=== PATIENT | female | born 1945 | race Caucasian/White ===

== ENCOUNTER 2017-01-17 05:05 | Day surgery (SDC) | payer OTHER ==
[2017-01-16 12:51] VITALS: BMI 35.3
--- NOTE | 2017-01-17 08:46 | HP ---
[facility] - Chief Complaint Chief Complaint: right ankle fx - Past Medical History Allergies/Adverse Reactions: Allergies Allergy/AdvReac Type Severity Reaction Status Date / Time No Known Drug Allergies Allergy Verified 01/16/17 12:51 - Current Medications Current Medications: Home Medications Medication Instructions Recorded Aspirin 81 mg PO DAILY 06/27/12 Pitavastatin Calcium [Livalo] 1 mg PO DAILY 06/27/12 Atenolol [Tenormin -] 50 mg PO HS #0 06/28/12 Calcium Carbonate/Vitamin D3 1 each PO BID 10/04/13 [Calcium 600-Vit D3 200 Tablet] Docusate Sodium [Colace -] 100 mg PO DAILY 10/04/13 Isosorbide Mononitrate 30 mg PO DAILY #0 10/23/13 Irbesartan/Hydrochlorothiazide 1 each PO DAILY 01/16/17 [Avalide 150-12.5 mg Tablet] Oxycodone HCl/Acetaminophen 1 - 2 tab PO Q6H #50 tab MDD 8 01/17/17 [Percocet 5-325 mg Tablet] [facility] Physical Exam - Physical Examination General Appearance: Well Nourished, Well Developed, Alert & Oriented x3 ENT: Clear Lung: Normal air movement Heart: Regular rate & rhythm Extremities: Other (right ankle - + swelling, + ttp, decr rom, nvi xrays show displaced distal fibula fx) Neurological: Intact, Alert, Oriented [facility] Impression/Plan - Impression/Plan Impression: right distal fibula fx Operative Procedure: right distal fibula orif Date to be Performed: 01/17/17
[2017-01-17] MEDS ORDERED: ROPIVACAINE HCL 0.5% 30ML VIAL ONE (09:58)
[2017-01-17] MEDS ORDERED: MIDAZOLAM HCL 2 MG/2 ML SINGLE DOSE VIAL ONE ×2 (11:04→11:25)
[2017-01-17] MEDS ORDERED: PROPOFOL 20 ML ONE ×2 (11:10→11:45)
[2017-01-17] MEDS ORDERED: ceFAZolin SODIUM 1 GM VIAL IVPB ONE (11:14)
[2017-01-17] MEDS ORDERED: ePHEDrine SULFATE 50 MG/1 ML AMPULE ONE (11:26)
[2017-01-17] MEDS ORDERED: ceFAZolin SODIUM 1 GM VIAL ONE (11:26)
[2017-01-17] MEDS ORDERED: DEXAMETHASONE SOD PHOSPHATE 4 MG/1 ML VIAL ONE (11:57)
--- NOTE | 2017-01-17 12:29 | OP ---
Operative Note - Note: Operative Date: 01/17/17 ([facility]) Pre-Operative Diagnosis: right distal fibula fx Operation: right distal fibula orif Post-Operative Diagnosis: Same as Pre-op Surgeon: Dany Damon Hybrid Car Mechanic: Mingo Garcia Anesthesiologist/DIRECTOR DRUG SAFETY: Pina [place] MD Anesthesia: Spinal Estimated Blood Loss (mls): 5 (tourniquet) Operative Report Dictated: Yes
--- NOTE | 2017-01-17 13:36 | OP ---
DATE OF OPERATION: 01/17/2017 PREOPERATIVE DIAGNOSIS: Comminuted right lateral malleolar fracture. POSTOPERATIVE DIAGNOSIS: Comminuted right lateral malleolar fracture. PROCEDURE: Open reduction internal fixation right lateral malleolar fracture. SURGICAL ATTENDING: Dany Damon MD ANESTHESIA: Spinal. CLOSURE: A [place] distal fibula plate with appropriate screws, 2-0 Vicryl subcutaneous, and 3-0 Monocryl subcuticular with skin glue to skin followed by U splint. COMPLICATIONS: None. CONDITION: To recovery room in stable condition. DESCRIPTION OF PROCEDURE: The patient was taken to the operating room on January 17, 2017. Spinal anesthesia was administered by the anesthesiologist. IV Kefzol was administered prophylactically prior to the case. The patient was placed supine on the fracture table with a bump under the buttock to raise the leg up. A well-padded pneumatic tourniquet was placed on the right proximal leg away from the fibular head. The right lower extremity was prepped and draped in the usual sterile fashion. The leg was exsanguinated with an Esmarch bandage. Tourniquet was inflated to 250 mmHg. An 8-cm longitudinal distal fibular incision was incised. Hemostasis achieved with Bovie electrocautery. Sharp dissection was carried down to the level of the fracture with periosteal elevator used to clean the fracture. Curettes and irrigation was used in and around the fracture. The fracture had 3 components. It had a normal oblique fracture of the lateral malleolus. It also had a large avulsion fragment and a piece that was attached to the anterior tibia-fibula ligament, and there was an avulsion fracture of the distal fibula tip as well. Provisional reduction was obtained of all of the fracture held by K-wires. A distal fibular plate from [place] was contoured with the distal tip bent to grab the avulsion fragment inferiorly. Multiple screws were drilled, depth gauged, and screwed with the appropriate size screws. A lag screw was placed on the avulsion fragment that was attached to the tibia-fibula ligament from anterior to posterior. She had good compression of that fracture. From the proximal shaft to the distal fragment, was unable to lag due to the comminution of the morphology of the fracture. After all of the hardware was placed, the x-rays revealed external position of the hardware with anatomic reduction of the fracture and intact mortis. The wound was irrigated with copious amounts of irrigation. The subcutaneous was closed with 2-0 Vicryl and 3-0 Monocryl for the subcuticular with skin glue for the skin followed by a U splint. The patient was awakened from anesthesia and transferred to recovery in stable condition. No complications. Estimated blood loss negligible. Gildardo [id number]
[2017-01-17 14:06] VITALS: TEMP 97
[2017-01-17 20:18] VITALS: BP 120/70; PULSE 70
== END 2017-01-17 20:10 | disposition home or self-care (01) ==
LOC: JASU-SURG 05:05
PROVIDERS: ATTEND Orthopaedic Surgery
PROC: 0QSJ04Z Reposition Right Fibula with Internal Fixation Device, Open Approach (ICD-10-PCS; principal; 2017-01-17 10:15)
DX: S82.61XA Displaced fracture of lateral malleolus of right fibula, initial encounter for closed fracture (principal); X58.XXXA Exposure to other specified factors, initial encounter; Y93.9 Activity, unspecified; Y92.9 Unspecified place or not applicable; Y99.9 Unspecified external cause status
CPT/HCPCS: 76000-TC; 94760